=== PATIENT | female | born 1955 | race Two or more races ===

== ENCOUNTER 2017-06-01 03:25 | Emergency (ER) | payer BC, OTHER ==
[~2017-06-01] VITALS: Ht 160 cm; Wt 72.0 kg
[2017-06-01] MEDS ORDERED: SODIUM CHLORIDE 0.9% 1,000 ML IV ONE (04:27)
[2017-06-01] MEDS ORDERED: ONDANSETRON HCL 4MG/2ML VIAL IV STA (04:27)
[2017-06-01] MEDS ORDERED: FAMOTIDINE 20MG/2ML VIAL IV STA (04:27)
[2017-06-01 04:56] LABS: BASOPHILS % 0.5 % (0.0-2.0); EOSINOPHILS % 0.7 % (0.0-5.0); HEMATOCRIT. 39.9 % (36.0-48.0); HEMOGLOBIN. 13.7 g/dL (12.0-16.0); LYMPHOCYTES % 21.7 % (20.0-50.0); MEAN CORPUSCULAR VOLUME 87.1 fL (81.0-99.0); MONOCYTES % 6.4 % (2.0-8.0); NEUTROPHILS % 70.7 % (40.0-76.0); PLATELET 169 x1000/uL (130-400); RED BLOOD CELL COUNT 4.58 mill/uL (4.2-5.4); RED CELL DISTRIBUTION WIDTH 14.1 % (11.6-14.6)
[2017-06-01 05:13] LABS: CARBON DIOXIDE 25 mEq/L (21-32); CHLORIDE 105 mEq/L (98-107); ETHANOL BLOOD < 10 mg/dL; TROPONIN I < 0.02 ng/mL (0.00-0.04)
[2017-06-01] MEDS ORDERED: SODIUM CHLORIDE 0.9% 1,000 ML IV NR (05:29)
[2017-06-01 10:33] LABS: *AMPHETAMINES SCREEN URINE NEGATIVE (NEGATIVE); *BARBITURATES SCREEN URINE NEGATIVE (NEGATIVE); *BENZODIAZEPINES SCREEN URINE NEGATIVE (NEGATIVE); *COCAINE SCREEN URINE NEGATIVE (NEGATIVE); CANNABINOID URINE SCREEN NEGATIVE (NEGATIVE); METHADONE URINE SCREEN NEGATIVE (NEGATIVE); OPIATES URINE SCREEN NEGATIVE (NEGATIVE); PHENCYCLIDINE URINE SCREEN NEGATIVE (NEGATIVE)
[2017-06-01] MEDS ORDERED: GUAIFENESIN 200MG/10ML SUGAR FREE UDC PO PRN (12:15)
[2017-06-01] MEDS ORDERED: CLONIDINE 0.1MG TABLET PO PRN (12:15)
[2017-06-01] MEDS ORDERED: ACETAMINOPHEN 650MG SUPP PR PRN (12:15)
[2017-06-01] MEDS ORDERED: DIPHENHYDRAMINE 50MG/ML VIAL IV PRN (12:15)
[2017-06-01] MEDS ORDERED: MAGNESIUM/ALUMINUM HYDROXIDE/SIMETHICONE 30ML UDC PO PRN (12:15)
[2017-06-01] MEDS ORDERED: ACETAMINOPHEN 650MG/20.3ML UDC GT PRN (12:15)
[2017-06-01] MEDS ORDERED: DOCUSATE SODIUM 100MG CAPSULE PO PRN (12:15)
[2017-06-01] MEDS ORDERED: IPRATROPIUM/ALBUTEROL 0.5-3(2.5)MG/3ML NEB INH PRN (12:15)
[2017-06-01] MEDS ORDERED: LORAZEPAM 0.5MG TABLET PO PRN (12:15)
[2017-06-01] MEDS ORDERED: ACETAMINOPHEN 325MG TABLET PO PRN (12:15)
[2017-06-01] MEDS ORDERED: SODIUM CHLORIDE 0.45% 1,000 ML IV SCH (12:30)
[2017-06-01] MEDS ORDERED: SODIUM CHLORIDE 0.9% INJ 3ML FLUSH IVF SCH (14:00)
[2017-06-01 17:58] VITALS: BP 143/85
[2017-06-01] MEDS ORDERED: NA PHOS,M-B/NA PHOS,DI-BA ENEMA 118ML PR PRN (18:00)
== END 2017-06-01 18:21 | disposition left against medical advice (07) ==
LOC: ER 03:25 → ENRESERV 13:11 → CANRESERV 13:11 → ENRESERV 15:44 → CANRESERV 16:26 → ENRESERV 16:26 → CANRESERV 16:28 → ENRESERV 16:28 → ER 18:21 → CANBEDREQ 06-02 02:54
DX: E87.2 Acidosis (principal); F41.9 Anxiety disorder, unspecified; E78.00 Pure hypercholesterolemia, unspecified; R42 Dizziness and giddiness; Z88.6 Allergy status to analgesic agent
CPT/HCPCS: 36415; 71010; 74176; 80053; 80305; 83605; 83690; 83880; 84484; 85025; 93005; 96361; 96374; 96375; 99285; G0482; J2405; J3490; J7030; Z7610